=== PATIENT | male | born 1985 | race Caucasian/White ===

== ENCOUNTER → 2016-07-19 | Day surgery (SDC) | payer BC ==
[2016-07-09 10:29] VITALS: Ht 180.3 cm; Wt 109.1 kg
[~2016-07-19] VITALS: Ht 180.3 cm; Wt 109.1 kg
[~2016-07-19] MED LIST: ATROPINE SULFATE 0.1 MG/ML 5ML SYR IV PRN; CEFAZOLIN 2000 MG/60 ML D5W IV SCH; DEXAMETHASONE SOD INJ 4 MG/ML VIAL ONE; EpINEphrine INJ 1MG/ML AMP 1 MG/ML AMP ONE; FENTANYL CITRATE INJ 50 MCG/1 ML 2 ML VIAL IV PRN; FENTANYL CITRATE INJ 50 MCG/1 ML 2 ML VIAL ONE; HYDR-5688 PO; HYDROCODONE/ACETAMOPHEN 5/325MG TAB ONE; HYDROCODONE/ACETAMOPHEN 5/325MG TAB PO PRN; KETOROLAC TROMETHAMINE 30 MG/ML VIAL IV. PRN; KETOROLAC TROMETHAMINE 30 MG/ML VIAL ONE; LABETALOL HCL IV 5 MG/ML 20ML IV PRN; LACTATED RINGER'S 1000ML 1,000 ML IV SCH; LIDOCAINE HCL 2% 2 ML VIAL (20MG/ML) ONE; LTN/10 PO; MIDAZOLAM HCL 1 MG/ML 2ML VIAL ONE; ONDANSETRON INJ 2 MG/ML 2 ML VIAL IV PRN; ONDANSETRON INJ 2 MG/ML 2 ML VIAL ONE; PROPOFOL IV EMULSION 10 MG/ML 20 ML VIAL IV ONE; ROPIVACAINE 0.5% 5 MG/ML 30 ML VIAL ONE; SODIUM CHLORIDE 0.9% 1000ML 1,000 ML IV SCH
--- NOTE | 2016-07-19 08:07 | History & Physical Bridge - [place] ---
H&P Re-Evaluation Bridge Note: I have examined the patient, reviewed the History & Physical and in the interval since the performance of the History & Physical I have noted the following changes of clinical significance: No changes noted
--- NOTE | 2016-07-19 08:53 | [facility] Post Operative Brief Note ---
Immediate Operative Summary Operative Date Jul 19, 2016. Pre-Operative Diagnosis Left Knee Lateral Meniscus Tear, Pain Post-Operative Diagnosis Same Procedure(s) Performed Left Knee Arthroscopy, Partial Lateral Meniscectomy Surgeon Dr. Bergeron Inside Sales Assistant Surgeon(s) Jamal Olguin PA-C Estimated Blood Loss Minimal Findings as above Specimens None Complication(s) None Disposition Recovery Room / PACU
--- NOTE | 2016-07-19 08:54 | Discharge Instructions-SurgCtr ---
Discharge Instructions Visit Reason for Visit: Left Knee Lateral Meniscus Tear, Pain Discharge Discharge Diagnosis / Problem: SAME ABOVE Discharge Goals Goal(s): Decrease discomfort, Improve function Activity Recommendations Activity Limitations: as noted below Lifting Limitations: gradually increase as tolerated Exercise/Sports Limitations: gradually increase as tolerated Driving or Machine Use: WHEN NOT TAKING PAIN MEDICATION Anesthesia . Post Anesthesia Instructions: If you have had General Anesthesia or IV Sedation: * Do not drive today. * Resume driving when surgeon permits. * Do not make important decisions or sign legal documents today. * Call surgeon for: 1. Temperature elevations greater than 101 degrees F. 2. Uncontrollable pain. 3. Excessive bleeding. 4. Persistent nausea and vomiting. 5. Medication intolerance (nausea, vomiting or rash). * For nausea and vomiting use only clear liquids such as: tea, soda, bouillon until nausea subsides, then gradually increase diet as tolerated. * If you have any concerns or questions, call your surgeon's office. If physician is unavailable and it is an emergency, call 911 or go to the nearest emergency room. . Instructions / Follow-Up Instructions / Follow-Up MEDICATIONS: * Resume previous medications unless instructed otherwise by your surgeon. * Always take pain medication on a full stomach or with food to avoid upset stomach. * Do not drink alcohol or drive while taking narcotics. * Ibuprofen or Tylenol may be taken if narcotic not needed. SPECIAL CARE INSTRUCTIONS: __ None _X_ Keep extremity elevated and iced x 48 hours; apply ice 20-30 minutes 8-10 times/day. May remove at night. _X_ Crutches _X_ May discard when able __ Brace/Post-op shoe __ 24 hrs/day __ Remove at night _X_ Dressing __ Maintain until seen in office, may shower with plastic over site _X_ Remove dressings in 24-48 hours and then may shower _X_ Cover incisions with band-aids after showering __ Do not remove steri-strips Call physician if chills or temperature rises above 102 degrees or pain unrelieved by prescribed pain medications. Office [phone] Diet Recommendations Home Diet: no limitations Fluid Restriction: None Procedures Procedures Performed: Left Knee Arthroscopy, Partial Lateral Meniscectomy Pending Studies Studies pending at discharge: no Work Instructions Return To Work: after follow-up Medical Emergencies . Who to Call and When: Medical Emergencies: If at any time you feel your situation is an emergency, please call 911 immediately. . Non-Emergent Contact Non-Emergency issues call your: Primary Care Provider Call Non-Emergent contact if: you have a fever, temperature is above 101.5 . . "Provider Documentation" section prepared by Rickey Olguin.
--- NOTE | 2016-07-19 09:13 | OPERATIVE REPORT ---
DATE OF OPERATION: 07/19/2016 PREOPERATIVE DIAGNOSIS: Possible lateral meniscal tear of the left knee. POSTOPERATIVE DIAGNOSIS: Small lateral meniscal tear of the left knee. PROCEDURE: Left knee arthroscopy with partial lateral meniscectomy. SURGEON: Dr. Zach Bergeron. ROOMING HOUSE OPERATOR: Jeffery Olguin PA-C, whose assistance was necessary for positioning of the leg and helping with instrumentation. ANESTHESIA: General. COMPLICATIONS: None. CONDITION: Stable to PACU. INDICATIONS: Juan Pablo is a very pleasant 30-year-old male who presented to my office with chronic left knee pain. It has been ongoing for several years. He had 2 MRIs, both of which were essentially negative but did show a little bit of fluid in the lateral meniscal root. All of his pain was located laterally. After failing years of conservative treatment including extensive physical therapy, he elected to proceed with arthroscopy. OPERATION AND FINDINGS: On 07/19/2016, he arrived at [facility] for the above procedure. He was seen in the preoperative holding area and operative extremity was identified and signed. He was then given a preoperative antibiotic, taken back to the operating room, laid on the table in supine position and put under general anesthesia. The left knee was prepped and draped in sterile fashion. Timeout was done, and the patient and operative extremity was properly identified. A scope was introduced in the medial parapatellar portal. Diagnostic arthroscopy showed no loose bodies in the suprapatellar pouch. There was no synovitis. The patella tracked in the center of the trochlea. There was no cartilage damage in the patellofemoral joint. There was a little bit of fat pad impingement within the trochlea. The scope was then brought into the medial compartment and medial parapatellar portal was made under direct visualization. A probe was used to probe the medial meniscus and there was no evidence of any meniscal damage. The meniscus appeared normal. There was no cartilage damage in the medial compartment. The scope was then brought into the trochlea, ACL and PCL were intact. The scope was then brought into the lateral compartment. The majority of the lateral meniscus looked okay but there was some fraying and some slight incarceration of a portion of the root of the lateral meniscus. A shaver was used to trim the root of the lateral meniscus back to stable margins. The majority of the root was intact and very stable. A little bit of fat pad was excised that could be impinging within the lateral compartment. There was no cartilage damage laterally. The scope was then placed in the contralateral portal. Repeat diagnostic arthroscopy showed no additional pathology. The scope was brought in the posterior aspect of the knee. The medial meniscal root looked fine and there were no loose bodies or pathology posteriorly. A very limited synovectomy was done of any fat pad in the trochlea and in the lateral gutter. This was all fairly minimal. Arthroscopic instruments were then removed from the knee. Portal sites were closed with 3-0 nylon. The knee was then injected with 30 mL of Neuropen with epinephrine and Toradol. He was then placed in a soft compressive dressing, extubated, transferred to a litter and taken to the postanesthesia care unit in stable condition. He tolerated the procedure well. I attest to the content of the Intraoperative Record and any orders documented therein. Any exceptio ns are noted below.
[2016-07-19 09:41] VITALS: TEMP 37.1
[2016-07-19 10:05] VITALS: BP 156/98; PULSE 90; O2SAT 97
--- NOTE | 2016-07-19 10:12 | Anesthesia Progress Nt - [facility] ---
Anesthesia Post Op Note Date & Time Jul 19, 2016 at 10:12 Vital Signs Vital Signs Past 12 Hours Date Time Temp Pulse Resp B/P Pulse Ox O2 Delivery O2 Flow Rate FiO2 07/19/16 10:05 90 16 156/98 97 Room Air 07/19/16 09:41 37.1 85 16 153/103 97 Room Air 07/19/16 09:31 159/95 07/19/16 09:30 86 21 07/19/16 09:30 85 21 95 07/19/16 09:28 151/108 07/19/16 09:27 36.9 87 20 159/95 96 Room Air Mask 07/19/16 09:25 87 24 97 07/19/16 09:25 86 24 07/19/16 09:24 163/101 07/19/16 09:20 89 15 07/19/16 09:20 88 15 100 07/19/16 09:18 166/103 07/19/16 09:15 88 28 100 07/19/16 09:15 89 28 07/19/16 09:14 155/95 07/19/16 09:10 97 17 100 07/19/16 09:10 98 17 07/19/16 09:09 169/99 07/19/16 09:05 104 17 100 07/19/16 09:05 103 17 07/19/16 09:04 129/76 07/19/16 09:00 70 19 95 07/19/16 09:00 72 19 07/19/16 08:58 98/73 07/19/16 08:55 36.6 76 20 127/73 95 Mask 6 07/19/16 08:55 75 16 07/19/16 08:55 74 16 94 07/19/16 07:25 36.9 85 20 168/114 100 Room Air Notes Mental Status: alert / awake / arousable, participated in evaluation Pt Amnestic to Procedure: Yes Nausea / Vomiting: adequately controlled Pain: adequately controlled Airway Patency, RR, SpO2: stable & adequate BP & HR: stable & adequate Hydration State: stable & adequate Anesthetic Complications: no major complications apparent
== END | disposition home or self-care (01) ==
LOC: X.SURG 07:18
PROVIDERS: ATTEND Orthopaedic Surgery
DX: M23.202 Derangement of unspecified lateral meniscus due to old tear or injury, unspecified knee (principal); I10 Essential (primary) hypertension